=== PATIENT | male | born 1945 | race African-American/Black ===

== ENCOUNTER 2018-05-30 12:23 | Inpatient (IN) | payer MEDICARE, OTHER ==
[~2018-05-30] VITALS: Ht 172.7 cm; Wt 86.2 kg
[2018-05-30 13:21] LABS: BASOPHILS % 0.4 % (0.0-2.0); EOSINOPHILS % 2.3 % (0.0-5.0); HEMATOCRIT. 36.2 % (42.0-52.0); HEMOGLOBIN. 12.1 g/dL (14.0-18.0); LYMPHOCYTES % 21.5 % (20.0-50.0); MEAN CORPUSCULAR HEMOGLOBIN 31.8 pg (28.0-32.0); MEAN CORPUSCULAR VOLUME 94.6 fL (80.0-94.0); MEAN PLATELET VOLUME 8.1 fl (7.4-10.4); MONOCYTES % 7.5 % (2.0-8.0); NEUTROPHILS % 68.3 % (40.0-76.0); PLATELET 231 x1000/uL (130-400); RED BLOOD CELL COUNT 3.83 mill/uL (4.7-6.1); RED CELL DISTRIBUTION WIDTH 13.8 % (11.6-14.6)
[2018-05-30 13:22] LABS: CHLORIDE 108 mEq/L (98-107)
[2018-05-30 13:26] LABS: ETHANOL BLOOD < 10 mg/dL
[2018-05-30] MEDS ORDERED: HYDRALAZINE 20MG/ML VIAL IV ONE (16:00)
[2018-05-30] MEDS ORDERED: ASPIRIN 81MG TABLET PO ONE (16:00)
[2018-05-30 18:32] LABS: CLARITY URINE CLEAR (CLEAR); COLOR URINE YELLOW (YELLOW); KETONES URINE NEGATIVE (NEGATIVE); LEUKOCYTE ESTERASE URINE NEGATIVE (NEGATIVE); NITRITE URINE NEGATIVE (NEGATIVE); OCCULT BLOOD URINE NEGATIVE (NEGATIVE); PH URINE 6.5 (4.5-8.0); PROTEIN URINE NEGATIVE (NEGATIVE); SPECIFIC GRAVITY URINE 1.016 (1.005-1.030); UROBILINOGEN URINE 0.2 E.U./dL (0.2-1.0)
[2018-05-30 18:44] LABS: *AMPHETAMINES SCREEN URINE NEGATIVE (NEGATIVE); METHADONE URINE SCREEN NEGATIVE (NEGATIVE); OPIATES URINE SCREEN NEGATIVE (NEGATIVE); PHENCYCLIDINE URINE SCREEN NEGATIVE (NEGATIVE)
[2018-05-30 18:45] LABS: *BARBITURATES SCREEN URINE NEGATIVE (NEGATIVE); *BENZODIAZEPINES SCREEN URINE NEGATIVE (NEGATIVE); *COCAINE SCREEN URINE NEGATIVE (NEGATIVE); CANNABINOID URINE SCREEN NEGATIVE (NEGATIVE)
[2018-05-30] MEDS ORDERED: BENAZEPRIL 10MG TABLET PO NR (21:00)
[2018-05-30 22:00] VITALS: BP 190/80
[2018-05-30] MEDS ORDERED: ATEN-42 MT (22:14)
[2018-05-30] MEDS ORDERED: RANI300C8 MT (22:14)
[2018-05-30] MEDS ORDERED: CHLO4TAB MT (22:14)
[2018-05-30] MEDS ORDERED: TERA10CA4 MT (22:14)
[2018-05-30] MEDS ORDERED: OMEP20CA10 MT (22:14)
[2018-05-30 22:32] VITALS: BP 190/80
[2018-05-30] MEDS ORDERED: ONDANSETRON HCL 4MG/2ML INJ IV PRN (23:30)
[2018-05-30] MEDS ORDERED: MAGNESIUM/ALUMINUM HYDROXIDE/SIMETHICONE 30ML UDC PO PRN (23:30)
[2018-05-30] MEDS ORDERED: DOCUSATE SODIUM 100MG CAPSULE PO PRN (23:30)
[2018-05-30] MEDS ORDERED: ACETAMINOPHEN 650MG/20.3ML UDC GT PRN (23:30)
[2018-05-30] MEDS ORDERED: HYDROCODONE/ACETAMINOPHEN 5/325MG TABLET PO PRN (23:30)
[2018-05-30] MEDS ORDERED: IPRATROPIUM/ALBUTEROL 0.5-3(2.5)MG/3ML NEB INH PRN (23:30)
[2018-05-30] MEDS ORDERED: NA PHOS,M-B/NA PHOS,DI-BA ENEMA 118ML PR PRN (23:30)
[2018-05-30] MEDS ORDERED: GUAIFENESIN 200MG/10ML SUGAR FREE UDC PO PRN (23:30)
[2018-05-30] MEDS ORDERED: ACETAMINOPHEN 650MG SUPP PR PRN (23:30)
[2018-05-30] MEDS ORDERED: DIPHENHYDRAMINE 50MG/ML VIAL IV PRN (23:30)
[2018-05-30] MEDS ORDERED: ACETAMINOPHEN 325MG TABLET PO PRN (23:30)
[2018-05-30] MEDS ORDERED: HYDROCODONE/ACETAMINOPHEN 10/325MG TABLET PO PRN (23:30)
[2018-05-30] MEDS: ENOXAPARIN 40MG/0.4ML SYR SUBCUT SCH (23:54)
[2018-05-31] VITALS: BP 173/80
[2018-05-31] MEDS ORDERED: OMEPRAZOLE 20MG CAPSULE EXTENDED RELEASE PO ONE (00:05)
[2018-05-31] MEDS: OMEPRAZOLE 20MG CAPSULE EXTENDED RELEASE PO SCH ×2 (00:42→08:39)
[2018-05-31 04:00] VITALS: BP 183/78
[2018-05-31] MEDS: CLONIDINE 0.1MG TABLET PO PRN (05:43)
[2018-05-31] MEDS: SODIUM CHLORIDE 0.9% INJ 3ML FLUSH IVF SCH ×3 (05:44→21:20)
[2018-05-31 06:49] LABS: CHLORIDE 108 mEq/L (98-107)
[2018-05-31 07:00] LABS: LDL CHOLESTEROL 134 mg/dL (5-100)
[2018-05-31 07:01] LABS: HDL CHOLESTEROL 48 mg/dL (40-59)
[2018-05-31 07:02] LABS: BASOPHILS % 0.2 % (0.0-2.0); EOSINOPHILS % 1.2 % (0.0-5.0); HEMATOCRIT. 36.9 % (42.0-52.0); HEMOGLOBIN. 12.4 g/dL (14.0-18.0); LYMPHOCYTES % 22.4 % (20.0-50.0); MEAN CORPUSCULAR HEMOGLOBIN 31.4 pg (28.0-32.0); MEAN CORPUSCULAR VOLUME 93.3 fL (80.0-94.0); MEAN PLATELET VOLUME 8.5 fl (7.4-10.4); MONOCYTES % 7.4 % (2.0-8.0); NEUTROPHILS % 68.8 % (40.0-76.0); PLATELET 229 x1000/uL (130-400); RED BLOOD CELL COUNT 3.96 mill/uL (4.7-6.1); RED CELL DISTRIBUTION WIDTH 13.8 % (11.6-14.6)
[2018-05-31 08:00] VITALS: BP 161/84
[2018-05-31 08:04] LABS: CLARITY URINE CLEAR (CLEAR); COLOR URINE YELLOW (YELLOW); KETONES URINE NEGATIVE (NEGATIVE); LEUKOCYTE ESTERASE URINE NEGATIVE (NEGATIVE); NITRITE URINE NEGATIVE (NEGATIVE); OCCULT BLOOD URINE NEGATIVE (NEGATIVE); PROTEIN URINE NEGATIVE (NEGATIVE); SPECIFIC GRAVITY URINE 1.016 (1.005-1.030); UROBILINOGEN URINE 0.2 E.U./dL (0.2-1.0)
[2018-05-31 08:18] LABS: *AMPHETAMINES SCREEN URINE NEGATIVE (NEGATIVE); *BARBITURATES SCREEN URINE NEGATIVE (NEGATIVE); *BENZODIAZEPINES SCREEN URINE NEGATIVE (NEGATIVE)
[2018-05-31 08:19] LABS: *COCAINE SCREEN URINE NEGATIVE (NEGATIVE); CANNABINOID URINE SCREEN NEGATIVE (NEGATIVE); METHADONE URINE SCREEN NEGATIVE (NEGATIVE); OPIATES URINE SCREEN NEGATIVE (NEGATIVE); PHENCYCLIDINE URINE SCREEN NEGATIVE (NEGATIVE)
[2018-05-31] MEDS: ASPIRIN 325MG EC TABLET PO SCH (08:39)
[2018-05-31 12:00] VITALS: BP 148/79
[2018-05-31 16:00] VITALS: BP 139/79
[2018-05-31 20:00] VITALS: BP 175/89
[2018-05-31] MEDS: QUETIAPINE FUMARATE 25MG TABLET PO SCH (21:19)
[2018-05-31] MEDS: ENOXAPARIN 40MG/0.4ML SYR SUBCUT SCH (21:19)
[2018-05-31] MEDS: ATORVASTATIN CALCIUM 20MG TABLET PO SCH (21:19)
[2018-05-31] MEDS: TERAZOSIN HCL 5MG CAPSULE PO SCH (21:20)
[2018-06-01] VITALS (7 sets, daily range): BP systolic 155–168; BP diastolic 65–89
[2018-06-01] MEDS: SODIUM CHLORIDE 0.9% INJ 3ML FLUSH IVF SCH ×2 (06:04→21:35)
[2018-06-01] MEDS: ASPIRIN 325MG EC TABLET PO SCH (08:35)
[2018-06-01] MEDS: QUETIAPINE FUMARATE 25MG TABLET PO SCH ×2 (08:35→21:33)
[2018-06-01] MEDS: OMEPRAZOLE 20MG CAPSULE EXTENDED RELEASE PO SCH (08:37)
[2018-06-01] MEDS ORDERED: LORAZEPAM 2MG/ML CPJ IV SCH (13:00)
[2018-06-01 13:29] LABS: BASOPHILS % 0.2 % (0.0-2.0); EOSINOPHILS % 1.2 % (0.0-5.0); HEMATOCRIT. 36.5 % (42.0-52.0); HEMOGLOBIN. 12.5 g/dL (14.0-18.0); LYMPHOCYTES % 24.8 % (20.0-50.0); MEAN CORPUSCULAR VOLUME 93.1 fL (80.0-94.0); MEAN PLATELET VOLUME 8.3 fl (7.4-10.4); MONOCYTES % 6.3 % (2.0-8.0); NEUTROPHILS % 67.5 % (40.0-76.0); PLATELET 217 x1000/uL (130-400); RED BLOOD CELL COUNT 3.93 mill/uL (4.7-6.1); RED CELL DISTRIBUTION WIDTH 13.8 % (11.6-14.6)
[2018-06-01 13:42] LABS: CHLORIDE 110 mEq/L (98-107)
[2018-06-01] MEDS ORDERED: LORAZEPAM 0.5MG TABLET PO NR (16:15)
[2018-06-01] MEDS ORDERED: POTASSIUM CHLORIDE 20MEQ TABLET SR PO PRN (17:15)
[2018-06-01] MEDS: ATORVASTATIN CALCIUM 20MG TABLET PO SCH (21:34)
[2018-06-01] MEDS: TERAZOSIN HCL 5MG CAPSULE PO SCH (21:34)
[2018-06-01] MEDS: ENOXAPARIN 40MG/0.4ML SYR SUBCUT SCH (21:34)
[2018-06-02] VITALS (8 sets, daily range): BP systolic 159–197; BP diastolic 72–97
[2018-06-02] MEDS: CLONIDINE 0.1MG TABLET PO PRN ×2 (01:29→16:19)
[2018-06-02] MEDS: SODIUM CHLORIDE 0.9% INJ 3ML FLUSH IVF SCH (05:47)
[2018-06-02] MEDS: ASPIRIN 325MG EC TABLET PO SCH (08:10)
[2018-06-02] MEDS: QUETIAPINE FUMARATE 25MG TABLET PO SCH ×2 (08:10→21:49)
[2018-06-02] MEDS: AMLODIPINE 10MG TABLET PO SCH (08:11)
[2018-06-02] MEDS: OMEPRAZOLE 20MG CAPSULE EXTENDED RELEASE PO SCH (08:11)
[2018-06-02 12:45] LABS: BASOPHILS % 0.4 % (0.0-2.0); EOSINOPHILS % 1.4 % (0.0-5.0); HEMATOCRIT. 37.3 % (42.0-52.0); HEMOGLOBIN. 12.7 g/dL (14.0-18.0); LYMPHOCYTES % 24.7 % (20.0-50.0); MEAN CORPUSCULAR HEMOGLOBIN 31.7 pg (28.0-32.0); MEAN CORPUSCULAR VOLUME 93.3 fL (80.0-94.0); MEAN PLATELET VOLUME 8.3 fl (7.4-10.4); MONOCYTES % 7.9 % (2.0-8.0); NEUTROPHILS % 65.6 % (40.0-76.0); PLATELET 228 x1000/uL (130-400); RED CELL DISTRIBUTION WIDTH 13.9 % (11.6-14.6)
[2018-06-02 12:55] LABS: CHLORIDE 112 mEq/L (98-107)
[2018-06-02 15:49] LABS: PROTHROMBIN TIME 10.3 sec (9.1-11.1)
[2018-06-02 15:52] LABS: CHLORIDE 110 mEq/L (98-107)
[2018-06-02 15:53] LABS: BASOPHILS % 0.6 % (0.0-2.0); EOSINOPHILS % 1.7 % (0.0-5.0); HEMATOCRIT. 37.4 % (42.0-52.0); HEMOGLOBIN. 12.8 g/dL (14.0-18.0); LYMPHOCYTES % 31.2 % (20.0-50.0); MEAN CORPUSCULAR HEMOGLOBIN 31.8 pg (28.0-32.0); MEAN CORPUSCULAR VOLUME 92.7 fL (80.0-94.0); MEAN PLATELET VOLUME 8.3 fl (7.4-10.4); MONOCYTES % 8.2 % (2.0-8.0); NEUTROPHILS % 58.3 % (40.0-76.0); PLATELET 238 x1000/uL (130-400); RED BLOOD CELL COUNT 4.03 mill/uL (4.7-6.1); RED CELL DISTRIBUTION WIDTH 13.6 % (11.6-14.6)
[2018-06-02] MEDS: ENOXAPARIN 40MG/0.4ML SYR SUBCUT SCH (21:49)
[2018-06-02] MEDS: TERAZOSIN HCL 5MG CAPSULE PO SCH (21:49)
[2018-06-02] MEDS: ATORVASTATIN CALCIUM 20MG TABLET PO SCH (21:49)
[2018-06-02] MEDS ORDERED: AMLO10TA80 PO (21:57)
[2018-06-02] MEDS ORDERED: ATOR20TA PO (21:57)
[2018-06-02] MEDS ORDERED: ASA5EC PO (21:57)
[2018-06-03] VITALS (8 sets, daily range): BP systolic 156–183; BP diastolic 71–90
[2018-06-03] MEDS: CLONIDINE 0.1MG TABLET PO PRN ×2 (00:03→20:44)
[2018-06-03] MEDS: SODIUM CHLORIDE 0.9% INJ 3ML FLUSH IVF SCH ×3 (06:55→22:14)
[2018-06-03] MEDS: OMEPRAZOLE 20MG CAPSULE EXTENDED RELEASE PO SCH (06:55)
[2018-06-03] MEDS: QUETIAPINE FUMARATE 25MG TABLET PO SCH ×2 (10:59→20:44)
[2018-06-03] MEDS: ASPIRIN 325MG EC TABLET PO SCH (10:59)
[2018-06-03] MEDS: AMLODIPINE 10MG TABLET PO SCH (11:03)
[2018-06-03] MEDS: TERAZOSIN HCL 5MG CAPSULE PO SCH (20:44)
[2018-06-03] MEDS: ATORVASTATIN CALCIUM 20MG TABLET PO SCH (20:44)
[2018-06-03] MEDS: ENOXAPARIN 40MG/0.4ML SYR SUBCUT SCH (20:45)
== END 2018-06-03 22:40 | DRG 64 ==
LOC: ER 12:23 → EDBEDREQ 14:01 → 7WST 16:13 → EDBEDREQ 16:18 → ENRESERV 20:46
PROVIDERS: ADMIT Family Medicine; ATTEND Family Medicine
PROC: 4A00X4Z Measurement of Central Nervous Electrical Activity, External Approach (ICD-10-PCS; principal; 2018-06-03)
DX: I63.9 Cerebral infarction, unspecified (principal); N17.0 Acute kidney failure with tubular necrosis; I69.354 Hemiplegia and hemiparesis following cerebral infarction affecting left non-dominant side; D64.9 Anemia, unspecified; E78.5 Hyperlipidemia, unspecified; N40.0 Benign prostatic hyperplasia without lower urinary tract symptoms; E87.6 Hypokalemia; E11.9 Type 2 diabetes mellitus without complications; F20.9 Schizophrenia, unspecified; R26.9 Unspecified abnormalities of gait and mobility; G93.89 Other specified disorders of brain; K21.9 Gastro-esophageal reflux disease without esophagitis; Z91.14 Patient's other noncompliance with medication regimen; Z91.19 Patient's noncompliance with other medical treatment and regimen; Z79.4 Long term (current) use of insulin; I10 Essential (primary) hypertension
CPT/HCPCS: 36415; 70551; 71045; 80061; 80305; 80320; 82962; 83036; 84484; 93005; 93306; 93880; 93970; 96374; 96375; 97112; 97163; 97166; 99285; J0360; J1650; J2060; G0480